=== PATIENT | male | born 1970 | race Caucasian/White ===

== ENCOUNTER 2017-01-22 01:25 | Emergency (ER) | payer BC ==
[2017-01-22] MEDS ORDERED: Sodium Chloride 0.9% 10 ML Syringe FLUSH PRN (01:57)
[2017-01-22] MEDS ORDERED: Dicyclomine 10 MG Cap PO ONE (01:57)
[2017-01-22] MEDS ORDERED: Ondansetron 4 MG/2 ML SDV IVPUSH ONE (01:57)
[2017-01-22] MEDS ORDERED: Sodium Chloride 0.9% 2.5 ML Syringe FLUSH PRN (01:57)
[2017-01-22] MEDS ORDERED: Sodium Chloride 0.9% 1,000 ML IV ONE (01:57)
--- NOTE | 2017-01-22 01:58 | EDM.PDOC ---
ED HPI GENERAL MEDICAL PROBLEM - General Chief Complaint: Abdominal Pain Stated Complaint: ABDOMINAL PAINS Time Seen by Provider: 01/22/17 01:54 - History of Present Illness INITIAL COMMENTS - FREE TEXT/NARRATIVE: HISTORY AND PHYSICAL: History of present illness: Patient 46-year-old male presents with a concern of abdominal pain he's had this 10 years he's had nausea and decreased oral intake and concern about possible dehydration he is self diagnosed as irritable bowel syndrome he's been seen in the past he's had colonoscopy and seen by his private doctor is not given any dietary or when necessary medications for this chronic intermittent abdominal pain. He denies fever chills chest pain shortness breath or other concern Review of systems: As per history of present illness and below otherwise all systems reviewed and negative. Past medical history: As per history of present illness and as reviewed below otherwise noncontributory. Surgical history: As per history of present illness and as reviewed below otherwise noncontributory. Social history: No reported history of drug or alcohol abuse. Family history: As per history of present illness and as reviewed below otherwise noncontributory. Physical exam: HEENT: Atraumatic, normocephalic, pupils reactive, negative for conjunctival pallor or scleral icterus, mucous membranes dry, throat clear, neck supple, nontender, trachea midline. Lungs: Clear to auscultation, breath sounds equal bilaterally, chest nontender. Heart: S1S2, regular, negative for clicks, rubs, or JVD. Abdomen: Soft, nondistended, no localized tenderness. Negative for masses or hepatosplenomegaly. Negative for costovertebral tenderness. Pelvis: Stable nontender. Genitourinary: Deferred. Rectal: Deferred. Extremities: Atraumatic, negative for cords or calf pain. Neurovascular unremarkable. Neuro: Awake, alert, oriented. Cranial nerves II through XII unremarkable. Cerebellum unremarkable. Motor and sensory unremarkable throughout. Exam nonfocal. Diagnostics: CBC CMP amylase lipase UA CT abdomen and pelvis with IV contrast Therapeutics: Normal saline 1 L bolus Zofran 4 mg IV Bentyl 20 mg Impression: #1 chronic intermittent abdominal pain with acute exacerbation #2 dehydration Definitive disposition and diagnosis as appropriate pending reevaluation and review of above. - Related Data Allergies Allergy/AdvReac Type Severity Reaction Status Date / Time No Known Allergies Allergy Verified 01/22/17 03:20 Home Meds: Home Meds . [No Known Home Meds] 01/22/17 [History] Past Medical History - Past Health History Medical/Surgical History: Denies Medical/Surgical History - Infectious Disease History Infectious Disease History: Reports: Chicken Pox, Measles - Past Surgical History Musculoskeletal Surgical History: Reports: Other (See Below) Social & Family History - Family History Family Medical History: Noncontributory - Tobacco Use Smoking Status *Q: Current Every Day Smoker Years of Tobacco use: 20 Packs/Tins Daily: 1.5 Second Hand Smoke Exposure: Yes - Alcohol Use Days Per Week of Alcohol Use: 6 Number of Drinks Per Day: 2 Total Drinks Per Week: 12 - Recreational Drug Use Recreational Drug Use: No Drug Use in Last 12 Months: No Recreational Drug Type: Reports: Cocaine, Marijuana/Hashish Recreational Drug Use Frequency: Not Used In Over 1 Year ED ROS GENERAL - Review of Systems Review Of Systems: ROS reveals no pertinent complaints other than HPI. ED EXAM, GENERAL - Physical Exam Exam: See Below (See dictation) Course - Vital Signs Last Recorded V/S: Last Vital Signs Temp 37.2 C 01/22/17 01:50 Pulse 65 01/22/17 01:50 Resp 18 01/22/17 01:50 BP 125/68 01/22/17 01:50 Pulse Ox 96 01/22/17 01:50 - Orders/Labs/Meds Orders: Active Orders 24 hr Category Date Time Status Abdomen Pelvis w Cont [CT] Stat Exams 01/22/17 01:56 Taken Sodium Chloride 0.9% [Saline Flush] Med 01/22/17 01:57 Active 10 ml FLUSH ASDIRECTED PRN Sodium Chloride 0.9% [Saline Flush] Med 01/22/17 01:57 Active 2.5 ml FLUSH ASDIRECTED PRN Saline Lock Insert [OM.PC] Stat Oth 01/22/17 01:57 Ordered Medication Orders Sodium Chloride (Saline Flush) 10 ml FLUSH ASDIRECTED PRN PRN Reason: Keep Vein Open Sodium Chloride (Saline Flush) 2.5 ml FLUSH ASDIRECTED PRN PRN Reason: Keep Vein Open Labs: Laboratory Tests 01/22/17 01/22/17 01/22/17 Range/Units 02:15 02:15 04:00 WBC 11.41 H (4.0-11.0) K/uL RBC 5.69 (4.50-5.90) M/uL Hgb 17.7 H (13.0-17.0) g/dL Hct 50.6 H (38.0-50.0) % MCV 88.9 (80.0-98.0) fL MCH 31.1 (27.0-32.0) pg MCHC 35.0 (31.0-37.0) g/dL RDW Std Deviation 37.9 (28.0-62.0) fl RDW Coeff of [place] 12 (11.0-15.0) % Plt Count 226 (150-400) K/uL MPV 9.30 (7.40-12.00) fL Neut % (Auto) 70.3 (48.0-80.0) % Lymph % (Auto) 21.8 (16.0-40.0) % [place] % (Auto) 5.4 (0.0-15.0) % Eos % (Auto) 1.8 (0.0-7.0) % Baso % (Auto) 0.7 (0.0-1.5) % Neut # (Auto) 8.0 H (1.4-5.7) K/uL Lymph # (Auto) 2.5 H (0.6-2.4) K/uL [place] # (Auto) 0.6 (0.0-0.8) K/uL Eos # (Auto) 0.2 (0.0-0.7) K/uL Baso # (Auto) 0.1 (0.0-0.1) K/uL Sodium 138 (136-146) mmol/L Potassium 4.2 (3.5-5.1) mmol/L Chloride 108 (98-110) mmol/L Carbon Dioxide 20 L (21-31) mmol/L BUN 15 (6.0-23.0) mg/dL Creatinine 1.0 (0.6-1.5) mg/dL Est Cr Clr Drug Dosing TNP Estimated GFR (MDRD) > 60.0 ml/min Glucose 108 (60-110) mg/dL Calcium 9.4 (8.8-10.8) mg/dL Total Bilirubin 0.9 (0.1-1.5) mg/dL AST 21 (5-40) IU/L ALT 30 (8-54) IU/L Alkaline Phosphatase 57 (40-150) Total Protein 7.0 (6.0-8.0) g/dL Albumin 4.3 (3.5-5.0) g/dL Globulin 2.7 (2.0-3.5) g/dL Albumin/Globulin Ratio 1.6 (1.3-2.8) Lipase 19 (7-80) U/L Urine Color DARK YELLOW Urine Appearance CLEAR Urine pH 5.5 (5.0-8.0) Ur Specific [place] >= 1.030 (1.001-1.035) Urine Protein NEGATIVE (NEGATIVE) mg/dL Urine Glucose (UA) NEGATIVE (NEGATIVE) mg/dL Urine Ketones TRACE H (NEGATIVE) mg/dL Urine Occult Blood NEGATIVE (NEGATIVE) Urine Nitrite POSITIVE H (NEGATIVE) Urine Bilirubin NEGATIVE (NEGATIVE) Urine Urobilinogen 0.2 (<2.0) EU/dL Ur Leukocyte Esterase NEGATIVE (NEGATIVE) Urine RBC 0-2 (0-2/HPF) Urine WBC 0-3 (0-5/HPF) Ur Epithelial Cells RARE (NONE-FEW) Amorphous Sediment LIGHT (NEGATIVE) Urine Bacteria 1+ H (NEGATIVE) Meds: Medications Generic Name Dose Route Start Last Admin Trade Name Freq PRN Reason Stop Dose Admin Sodium Chloride 10 ml 01/22/17 01:57 Saline Flush FLUSH ASDIRECTED PRN Keep Vein Open Sodium Chloride 2.5 ml 01/22/17 01:57 Saline Flush FLUSH ASDIRECTED PRN Keep Vein Open Discontinued Medications Generic Name Dose Route Start Last Admin Trade Name Freq PRN Reason Stop Dose Admin Dicyclomine HCl 20 mg 01/22/17 01:57 01/22/17 02:23 Bentyl PO 01/22/17 01:58 20 mg ONETIME ONE Administration Sodium Chloride 1,000 mls @ 999 mls/hr 01/22/17 01:57 01/22/17 02:21 Normal Saline IV 01/22/17 02:57 999 mls/hr STAT ONE Administration Iopamidol 85 ml 01/22/17 03:23 01/22/17 03:35 Isovue Multipack-370 (76%) IVPUSH 01/22/17 03:24 85 ml ONETIME STA Administration Ketorolac Tromethamine 30 mg 01/22/17 03:40 01/22/17 03:48 Toradol IVPUSH 01/22/17 03:41 30 mg ONETIME ONE Administration Ondansetron HCl 4 mg 01/22/17 01:57 01/22/17 02:21 Zofran IVPUSH 01/22/17 01:58 4 mg ONETIME ONE Administration Departure - Departure Time of Disposition: 04:37 Disposition: Home, Self-Care 01 Condition: Good Clinical Impression: Abdominal pain - Discharge Information Referrals: Ty Herzog MD [Primary Care Provider] - Forms: ED Department Discharge Additional Instructions: The following information is given to patients seen in the emergency department who are being discharged to home. This information is to outline your options for follow-up care. We provide all patients seen in our emergency department with a follow-up referral. The need for follow-up, as well as the timing and circumstances, are variable depending upon the specifics of your emergency department visit. If you don't have a primary care physician on staff, we will provide you with a referral. We always advise you to contact your personal physician following an emergency department visit to inform them of the circumstance of the visit and for follow-up with them and/or the need for any referrals to a consulting specialist. The emergency department will also refer you to a specialist when appropriate. This referral assures that you have the opportunity for followup care with a specialist. All of these measure are taken in an effort to provide you with optimal care, which includes your followup. Under all circumstances we always encourage you to contact your private physician who remains a resource for coordinating your care. When calling for followup care, please make the office aware that this follow-up is from your recent emergency room visit. If for any reason you are refused follow-up, please contact the [facility] emergency department at and asked to speak to the emergency department charge nurse. Follow-up primary medical doctor 1-2 days return as needed as discussed - My Orders Last 24 Hours: My Active Orders 01/22/17 01:56 Abdomen Pelvis w Cont [CT] Stat 01/22/17 01:57 Sodium Chloride 0.9% [Saline Flush] 10 ml FLUSH ASDIRECTED PRN Sodium Chloride 0.9% [Saline Flush] 2.5 ml FLUSH ASDIRECTED PRN Saline Lock Insert [OM.PC] Stat - Assessment/Plan Last 24 Hours: My Active Orders 01/22/17 01:56 Abdomen Pelvis w Cont [CT] Stat 01/22/17 01:57 Sodium Chloride 0.9% [Saline Flush] 10 ml FLUSH ASDIRECTED PRN Sodium Chloride 0.9% [Saline Flush] 2.5 ml FLUSH ASDIRECTED PRN Saline Lock Insert [OM.PC] Stat
[2017-01-22 02:45] LABS: CHLORIDE,CL 108 mmol/L (98-110); SODIUM,NA 138 mmol/L (136-146)
[2017-01-22] MEDS ORDERED: Iopamidol 755 MG/ML 500 ML Multipack Bottle IVPUSH STA (03:23)
[2017-01-22] MEDS ORDERED: Ketorolac 30 MG/ML SDV IVPUSH ONE (03:40)
[2017-01-22 05:07] VITALS: BP 110/67
--- NOTE | 2017-01-22 15:31 | CT ---
EXAM DATE: 01/22/17 PATIENT'S AGE: 46 Patient: JARRET ROMERO Facility: [place], [place] Site . Site : 1970 Study: CT Abdomen/Pelvis W CONT [id number]/28/2017 3:39:04 AM Ordering Physician: Marvin Monet Final Report: INDICATION: Abdominal pain. Nausea and vomiting. TECHNIQUE: CT abdomen and pelvis acquired with 85 mL of Isovue 370 IV contrast. COMPARISON: None. FINDINGS: Lower chest: Unremarkable. Liver: Too small to characterize low-density lesions likely represent cysts. Spleen: Unremarkable. Pancreas: Unremarkable. Gallbladder and bile ducts: Unremarkable. Kidneys: Unremarkable. Adrenal glands: Unremarkable. GI tract: Nonvisualization of the appendix. No bowel obstruction or inflammatory changes involving the GI tract. No free air or free fluid. Vascular structures: Unremarkable. Lymph nodes: Unremarkable. Pelvic Organs: Unremarkable. Bones: No acute abnormality. IMPRESSION: No acute intra-abdominal or pelvic abnormality. Dictated by Jurgen Good MD @ 01/22/2017 4:05:45 AM Dictated by: Jurgen Good MD @ 01/22/2017 04:06:07 (Electronic Signature) Report Signed by Proxy. [facility]PITALCameron
== END 2017-01-22 04:45 | disposition home or self-care (01) ==
LOC: MW.ED 01:25
DX: E86.0 Dehydration (principal); R10.9 Unspecified abdominal pain; F17.210 Nicotine dependence, cigarettes, uncomplicated
CPT/HCPCS: 74177; 80053; 81001; 83690; 85025; 96361; 96374; 99284; A9270; J1885; J2405; J7040; Q9967; 99283

== ENCOUNTER 2018-08-30 08:06 | Day surgery (SDC) | payer BC ==
[~2018-08-30 08:06] MED LIST: Lactated Ringers 1,000 ML IV SCH
--- NOTE | 2018-08-30 08:41 | PCM.PREANE ---
Preanesthetic Assessment - Anesthesia/Transfusion/Family Hx Anesthesia History: Prior Anesthesia Without Reaction Transfusion History: No Prior Transfusion(s) - Review of Systems General: No Symptoms Pulmonary: No Symptoms Cardiovascular: No Symptoms Neurological: No Symptoms Other: Reports: None - Physical Assessment NPO Status Date: 08/29/18 O2 Sat by Pulse Oximetry: 68 Respiratory Rate: 20 Vital Signs: Last Vital Signs Temp 97.7 F 08/30/18 08:25 Pulse 68 08/30/18 08:25 Resp 20 08/30/18 08:25 BP 110/71 08/30/18 08:25 Pulse Ox 68 L 08/30/18 08:25 Height: 5 ft 7 in Weight: 78.471 kg ASA Class: 2 Mental Status: Alert & Oriented x3 Airway Class: Mallampati = 1 Dentition: Reports: Normal Dentition ROM/Head Extension: Full Lungs: Clear to Auscultation, Normal Respiratory Effort Cardiovascular: Regular Rate, Regular Rhythm - Allergies Allergies/Adverse Reactions: Allergies Allergy/AdvReac Type Severity Reaction Status Date / Time No Known Allergies Allergy Verified 08/28/18 10:46 - Blood Blood Available: No - Anesthesia Plan Pre-Op Medication Ordered: None - Acknowledgements Anesthesia Type Planned: General Anesthesia, MAC Pt an Appropriate Candidate for the Planned Anesthesia: Yes Alternatives and Risks of Anesthesia Discussed w Pt/Guardian: Yes Pt/Guardian Understands and Agrees with Anesthesia Plan: Yes Additional Comments: PMH: smoker PLAN: mac/tiva PreAnesthesia Questionnaire - Past Health History Medical/Surgical History: Denies Medical/Surgical History HEENT History: Reports: None Cardiovascular History: Reports: Other (See Below) Other Cardiovascular History: tends to run low blood pressure Respiratory History: Reports: None Other Respiratory History: has smoked 1.5 PPD for 30 years Gastrointestinal History: Reports: Colon Polyp, Diverticulosis, Other (See Below ) Other Gastrointestinal History: occasional heartburn- takes TUMS Genitourinary History: Reports: None Musculoskeletal History: Reports: Back Pain, Chronic, Fracture Other Musculoskeletal History: hx of fx ankle (casted) Neurological History: Reports: Concussion Psychiatric History: Reports: None Endocrine/Metabolic History: Reports: None Hematologic History: Reports: None Dermatologic History: Reports: None - Infectious Disease History Infectious Disease History: Reports: Chicken Pox, Measles - Past Surgical History GI Surgical History: Reports: Appendectomy, Colonoscopy, EGD Musculoskeletal Surgical History: Reports: Other (See Below) Other Musculoskeletal Surgeries/Procedures:: repair of ruptured biceps tendon and repair of soft tissue to foot - SUBSTANCE USE Smoking Status *Q: Current Every Day Smoker Tobacco Use Within Last Twelve Months: Cigarettes Days Per Week of Alcohol Use: 7 Number of Drinks Per Day: 3 Total Drinks Per Week: 21 Recreational Drug Use History: No - HOME MEDS Home Medications: Home Meds Acetaminophen/Diphenhydramine [Tylenol Pm Ex-Strength Caplet] 1 tab PO BEDTIME PRN 08/28/18 [History] Magnesium Citrate 1 tab PO DAILY 08/28/18 [History] - CURRENT (IN HOUSE) MEDS Current Meds: Current Medications Lactated Ringer's (Ringers, Lactated) 1,000 mls @ 125 mls/hr IV ASDIRECTED [facility] Last Admin: 08/30/18 08:28 Dose: 125 mls/hr
[2018-08-30] MEDS ORDERED: Midazolam 1 MG/ML 2 ML SDV ONE (09:13)
[2018-08-30] MEDS ORDERED: Lidocaine 2% 100 MG/5 ML Syringe ONE (09:14)
[2018-08-30] MEDS ORDERED: fentaNYL 100 MCG/2 ML SDV ONE (09:14)
[2018-08-30] MEDS ORDERED: Propofol 200 MG/20 ML SDV ONE ×2 (09:15→09:49)
[2018-08-30] MEDS ORDERED: Phenylephrine/Normal Saline 100 MCG/ML 10 ML Syringe ONE (09:41)
--- NOTE | 2018-08-30 10:12 | PCM.OPNOTE ---
- General Post-Op/Procedure Note Date of Surgery/Procedure: 08/30/18 Operative Procedure(s): egd w bx and colonoscopy w bx Findings: see dict [id number] Pre Op Diagnosis: abd pain and hx of colon polyp Post-Op Diagnosis: Same Anesthesia Technique: Moderate Sedation Primary Surgeon: Pedro Bobo Pathology: egd bx, inflammation at the stomach colon polyp, sessile, 2 mm at 60cm, 50cm and 50cm Complications: None Condition: Good
[2018-08-30 10:58] VITALS: BP 101/64
--- NOTE | 2018-08-30 11:07 | PCM.POSTAN ---
POST ANESTHESIA ASSESSMENT - MENTAL STATUS Mental Status: Alert, Oriented - RESPIRATORY Respiratory Status: Respiratory Rate WNL, Airway Patent, O2 Saturation Stable - CARDIOVASCULAR CV Status: Pulse Rate WNL, Blood Pressure Stable - GASTROINTESTINAL GI Status: No Symptoms - POST OP HYDRATION Hydration Status: Adequate & Stable
--- NOTE | 2018-08-30 11:08 | PCM48HPAN ---
Post Anesthesia Note - EVALUATION WITHIN 48HRS OF ANESTHETIC Vital Signs in Normal Range: Yes Patient Participated in Evaluation: Yes Respiratory Function Stable: Yes Airway Patent: Yes Cardiovascular Function Stable: Yes Hydration Status Stable: Yes Pain Control Satisfactory: Yes Nausea and Vomiting Control Satisfactory: Yes Mental Status Recovered: Yes Resp Rate: 16
--- NOTE | 2018-08-30 17:12 | OR ---
SURGEON: Pedro Bobo MD DATE OF PROCEDURE: 08/30/2018 PREOPERATIVE DIAGNOSIS: Abdominal pain and history of polyp. POSTOPERATIVE DIAGNOSES: 1. Duodenitis. 2. Gastritis. 3. Esophagitis. 4. Colon polyp and colon diverticulosis. PROCEDURE PERFORMED: 1. EGD with biopsy. 2. Colonoscopy with biopsy. PROCEDURE DETAILS: PROCEDURE #1: EGD: The patient was taken to the endoscopy room, and with the INSTRUMENT STERILIZER, Diprivan was administered. A well-lubricated EGD scope was gently inserted through the oropharynx, down the esophagus, passing through the gastroesophageal junction, into the stomach. The mucosa was examined upon the passage. Any etiology will be noted. Once in the stomach, we continued to advance to the distal antrum, passed through the pylorus into the second portion of the duodenum. Again, the mucosa was examined for any abnormality and etiology. The scope was then retrieved back to the stomach and then retroflexed to look at the fundus of the stomach. If a biopsy was indicated, we will biopsy the antrum, body, and gastroesophageal junction. The air will be sucked out while the scope is retrieved to reduce the patient's discomfort. The patient tolerated the procedure well. There were no intraoperative complications. Dr. Bobo was present through the whole procedure. Prior to surgery, a time-out had been called, the patient identified, procedure identified and antibiotic administered. PROCEDURE #2: Colonoscopy. The patient was taken to the endoscopy room. A time out was called, patient identified, and procedure identified. Diprivan was then administrated. Patient went from awake to sleep, hearing doctor talking or door closing is normal. Perineum inspection and digital examination were then performed. A well- lubricated colonoscope was gently inserted through the rectum, advanced past the rectosigmoid junction, the descending colon, splenic flexure, transverse colon, hepatic flexure, ascending colon, arrived to the cecum. Cecum was identified as dictated in the finding. Then the scope was carefully withdrawn while attention was paid to the mucosal surface for any abnormality. Air will be sucked out during the scope withdrawal. At the rectum, retroflexed to examine any rectal diseases, fistula or hemorrhoids. During mucosal examination, biopsy performed. Patient tolerated procedure well. There were no intraoperative complications, and Dr. Bobo was present throughout the whole procedure. FINDINGS: EGD findin. The patient is easily sedated with INSTRUMENT STERILIZER and Diprivan. The patient is soundly snoring. 2. Proximal esophagus and oropharynx are free of disease. No inflammation, stricture, ulceration, or varicosity. Distal esophagus and GE junction at 40 shows significant flame-like structure of salmon-colored change consistent with significant acid reflux. Stomach rugae is normal in appearance and antrum is quite inflamed with some area looked like a healed ulcer or blood. There is no kevin ulcer or kevin blood or food particle or bile observed. Duodenum polyp is completely inflamed and no ulcer again. After the duodenum bulb, duodenum is grossly normal in appearance. Retrieved back to the fundus, looking at the fundus of the stomach, there is no hiatal hernia. Biopsy done at antrum. One of the areas looked like a healed ulcer, biopsied that area and biopsied the body and biopsy the GE junction and sucked out of the gas while scope pulling out. Colonoscopy findin. Patient is easily sedated with INSTRUMENT STERILIZER and Diprivan. Patient is soundly snoring. 2. Bowel prep is average with large amount of stool ball, semi-formed stool, and compromised study. Stool balls probably from the diverticulosis. On rectal digital exam, the patient has had some nodule in the prostate and the patient would benefit seeing Urology consult after this at the followup visit. Colon is rather straightforward and cecum indicated by ileocecal fold, and one-to-one indentation, appendiceal orifice. Light emittance is not observed. Cecum is quite inflamed. When coupled with duodenitis and cecal inflammation, there is some concern about inflammatory disease like UC or Crohn's disease, depends on the pathology. Mucosa examined upon scope pulling out and the patient has very significant diverticulosis from left colon to transverse colon to right colon, mostly clustered into the left colon. No signs or symptoms of diverticulitis, and the patient had 3 small polyps of less than 2 mm, sessile polyps, removed with cold biopsy forceps at distance 60 and distance 50; one at 60, 2 at 50, all 2 mm sessile polyp. We also did a biopsy at the cecum because of the inflammation, and the patient has some mild internal hemorrhoids and mild external hemorrhoids. Other than the polyp, diverticulosis, and inflammation in the cecum, there is no other disease, ulceration, bleeding, AV malformation, mass, nodule, none of those. PLAN: The patient would benefit from: 1. PPI in regard to the stomach pain, esophagitis, duodenitis, and gastritis. 2. The patient would benefit from a urology visit because of the nodule palpated in the prostate. 3. Depending on the pathology report, the patient may need a GI consult. Refer to GI for possible inflammatory disease, and the patient probably will need to repeat EGD in 6 months from today. 4. Regarding a colonoscopy, the patient would benefit from repeat colonoscopy in 3 years from today because of previous history of colon polyps. WAQAR LYNN /[id number] JESSIE
== END 2018-08-30 11:11 | disposition home or self-care (01) ==
LOC: MW.SDS 08:06
PROVIDERS: ATTEND Surgery
DX: Z12.11 Encounter for screening for malignant neoplasm of colon (principal); K63.5 Polyp of colon; D12.4 Benign neoplasm of descending colon; K29.50 Unspecified chronic gastritis without bleeding; K29.80 Duodenitis without bleeding; K57.30 Diverticulosis of large intestine without perforation or abscess without bleeding; K20.9 Esophagitis, unspecified; K64.8 Other hemorrhoids; K64.4 Residual hemorrhoidal skin tags; Z86.010 Personal history of colon polyps
CPT/HCPCS: 43239; 45380; 88305; 88312; J2001; J2250; J2370; J2704; J3010; J7120

== ENCOUNTER 2021-04-26 01:37 | Emergency (ER) | payer BC ==
[2021-04-26] MEDS ORDERED: Ondansetron 4 MG/2 ML SDV IVPUSH ONE (01:53)
[2021-04-26] MEDS ORDERED: Sodium Chloride 0.9% 10 ML Syringe FLUSH PRN (01:53)
[2021-04-26] MEDS ORDERED: Sodium Chloride 0.9% 1,000 ML IV ONE (01:53)
[2021-04-26] MEDS ORDERED: Sodium Chloride 0.9% 2.5 ML Syringe FLUSH PRN (01:53)
--- NOTE | 2021-04-26 01:57 | EDM.PDOC ---
ED HPI GENERAL MEDICAL PROBLEM - General Stated Complaint: CHILLS SWEATS DEHYDRATED PUKING Time Seen by Provider: 04/26/21 01:52 - History of Present Illness INITIAL COMMENTS - FREE TEXT/NARRATIVE: History of present illness: [] Patient is vomiting and dry heaving. He has abdominal pain. He has been having this for at least a day. He has had a couple of drinks a day. He is to take acid medicine for his stomach but has not taken it for a long time. Patient's abdominal pain is moderately severe and caused him to double over. Nothing makes it better or worse. Review of systems: As per history of present illness and below otherwise all systems reviewed and negative. Past medical history: As per history of present illness and as reviewed below otherwise noncontributory. Surgical history: As per history of present illness and as reviewed below otherwise noncontributory. Social history: No reported history of drug or alcohol abuse. Family history: As per history of present illness and as reviewed below otherwise noncontributory. Physical exam: Constitutional - well developed, well-nourished and in no acute distress HEENT - normocephalic, no evidence of trauma - external nose and mouth normal - no mass in neck and no JVD - mucosae moist EYES - full EOM, PERRL, no icterus - no evidence of inflammation, injection, or drainage Respiratory - no respiratory distress, equal bilateral expansion, lungs clear to auscultation and no abnormal lung sounds Cardiovascular - Regular Rhythm with S1 and S2 appreciated and no murmur, gallop or rub. GI -tender-abdomen soft without distension or organomegaly - normal bowel sounds - no guard or rebound Musculoskeletal no gross deformity of long bones or joints - no tenderness, swelling or edema Neurologic - Alert and oriented times four - CN II-XII grossly intact - motor sensory and coordination symmetrically normal Psychiatric - appropriate mood and affect with normal thought content Hematologic - No petechiae or purpura - mucosa appropriate color and sclera not pale - normal nail bed color and refill Integument - no rash or evidence of trauma - normal turgor Diagnostics: [] Therapeutics: [] Impression: [] Plan: [] Definitive disposition and diagnosis as appropriate pending reevaluation and review of above. abd Pain Score (Numeric/FACES): 8 - Related Data Allergies Allergy/AdvReac Type Severity Reaction Status Date / Time No Known Allergies Allergy Verified 04/26/21 01:47 Home Meds: Home Meds Acetaminophen/Diphenhydramine [Tylenol Pm Ex-Strength Caplet] 1 tab PO BEDTIME PRN 08/28/18 [History] Magnesium Citrate 1 tab PO DAILY 08/28/18 [History] Ondansetron [Zofran ODT] 4 mg PO Q6H PRN #6 tab.dis 04/26/21 [Rx] Pantoprazole Sodium [Protonix] 40 mg PO DAILY #30 tablet. 04/26/21 [Rx] Past Medical History - Past Health History Medical/Surgical History: Denies Medical/Surgical History HEENT History: Reports: None Cardiovascular History: Reports: Other (See Below) Other Cardiovascular History: tends to run low blood pressure Respiratory History: Reports: None Other Respiratory History: has smoked 1.5 PPD for 30 years Gastrointestinal History: Reports: Colon Polyp, Diverticulosis, Other (See Below) Other Gastrointestinal History: occasional heartburn- takes TUMS Genitourinary History: Reports: None Musculoskeletal History: Reports: Back Pain, Chronic, Fracture Other Musculoskeletal History: hx of fx ankle (casted) Neurological History: Reports: Concussion Psychiatric History: Reports: None Endocrine/Metabolic History: Reports: None Hematologic History: Reports: None Dermatologic History: Reports: None - Infectious Disease History Infectious Disease History: Reports: Chicken Pox, Measles - Past Surgical History GI Surgical History: Reports: Appendectomy, Colonoscopy, EGD Musculoskeletal Surgical History: Reports: Other (See Below) Other Musculoskeletal Surgeries/Procedures:: repair of ruptured biceps tendon and repair of soft tissue to foot Social & Family History - Family History Family Medical History: No Pertinent Family History ED ROS GENERAL - Review of Systems Review Of Systems: Comprehensive ROS is negative, except as noted in HPI. ED EXAM, GENERAL - Physical Exam Exam: See Below Free Text/Narrative:: My physical exam is in the HPI Course - Vital Signs Last Recorded V/S: Last Vital Signs Temp 35.9 C L 04/26/21 01:48 Pulse 83 04/26/21 02:59 Resp 18 04/26/21 02:59 BP 124/76 04/26/21 02:59 Pulse Ox 97 04/26/21 02:59 - Orders/Labs/Meds Orders: Active Orders 24 hr Category Date Time Status Sodium Chloride 0.9% [Saline Flush] Med 04/26/21 01:53 Active 10 ml FLUSH ASDIRECTED PRN Sodium Chloride 0.9% [Saline Flush] Med 04/26/21 01:53 Active 2.5 ml FLUSH ASDIRECTED PRN Saline Lock Insert [OM.PC] Stat Oth 04/26/21 01:53 Ordered Medication Orders Sodium Chloride (Sodium Chloride 0.9% 10 Ml Syringe) 10 ml FLUSH ASDIRECTED PRN PRN Reason: Keep Vein Open Last Admin: 04/26/21 01:59 Dose: 10 ml Documented by: SANGEETA Sodium Chloride (Sodium Chloride 0.9% 2.5 Ml Syringe) 2.5 ml FLUSH ASDIRECTED PRN PRN Reason: Keep Vein Open Last Admin: 04/26/21 02:00 Dose: 2.5 ml Documented by: SANGEETA Labs: Laboratory Tests 04/26/21 04/26/21 04/26/21 Range/Units 02:05 02:05 02:54 WBC 16.55 H (4.0-11.0) K/uL RBC 5.30 (4.50-5.90) M/uL Hgb 17.6 H (13.0-17.0) g/dL Hct 47.7 (38.0-50.0) % MCV 90.0 (80.0-98.0) fL MCH 33.2 H (27.0-32.0) pg MCHC 36.9 (31.0-37.0) g/dL RDW Std Deviation 41.0 (28.0-62.0) fl RDW Coeff of [place] 13 (11.0-15.0) % Plt Count 250 (150-400) K/uL MPV 10.00 (7.40-12.00) fL Neut % (Auto) 81.7 H (48.0-80.0) % Lymph % (Auto) 12.7 L (16.0-40.0) % Turner % (Auto) 4.9 (0.0-15.0) % Eos % (Auto) 0.4 (0.0-7.0) % Baso % (Auto) 0.3 (0.0-1.5) % Neut # (Auto) 13.5 H (1.4-5.7) K/uL Lymph # (Auto) 2.1 (0.6-2.4) K/uL Turner # (Auto) 0.8 (0.0-0.8) K/uL Eos # (Auto) 0.1 (0.0-0.7) K/uL Baso # (Auto) 0.1 (0.0-0.1) K/uL Nucleated RBC % 0.0 /100WBC Nucleated RBCs # 0 K/uL Sodium 141 (136-148) mmol/L Potassium 4.0 (3.5-5.1) mmol/L Chloride 103 (98-107) mmol/L Carbon Dioxide 20.1 L (21.0-32.0) mmol/L BUN 9 (7.0-18.0) mg/dL Creatinine 1.0 (0.8-1.3) mg/dL Est Cr Clr Drug Dosing TNP Estimated GFR (MDRD) > 60.0 ml/min Glucose 154 H (74-106) mg/dL Calcium 9.1 (8.5-10.1) mg/dL Magnesium 1.9 (1.8-2.4) mg/dL Total Bilirubin 0.8 (0.2-1.0) mg/dL AST 30 (15-37) IU/L ALT 31 (14-63) IU/L Alkaline Phosphatase 65 (46-116) U/L Total Protein 8.2 (6.4-8.2) g/dL Albumin 4.3 (3.4-5.0) g/dL Globulin 3.9 (2.6-4.0) g/dL Albumin/Globulin Ratio 1.1 (0.9-1.6) Lipase 105 (73-393) U/L Urine Color YELLOW Urine Appearance CLEAR Urine pH 6.0 (5.0-8.0) Ur Specific [place] 1.020 (1.001-1.035) Urine Protein NEGATIVE (NEGATIVE) mg/dL Urine Glucose (UA) NEGATIVE (NEGATIVE) mg/dL Urine Ketones 15 H (NEGATIVE) mg/dL Urine Occult Blood NEGATIVE (NEGATIVE) Urine Nitrite NEGATIVE (NEGATIVE) Urine Bilirubin NEGATIVE (NEGATIVE) Urine Urobilinogen 0.2 (<2.0) EU/dL Ur Leukocyte Esterase NEGATIVE (NEGATIVE) Meds: Medications Generic Name Dose Route Start Last Admin Trade Name Freq PRN Reason Stop Dose Admin Sodium Chloride 10 ml 04/26/21 01:53 04/26/21 01:59 Sodium Chloride 0.9% 10 Ml Syringe FLUSH 10 ml ASDIRECTED PRN Administration Keep Vein Open Sodium Chloride 2.5 ml 04/26/21 01:53 04/26/21 02:00 Sodium Chloride 0.9% 2.5 Ml Syringe FLUSH 2.5 ml ASDIRECTED PRN Administration Keep Vein Open Discontinued Medications Generic Name Dose Route Start Last Admin Trade Name Vikki PRN Reason Stop Dose Admin Alum Conrad/Mag Conrad/Simeth XS 0 ml 04/26/21 02:27 04/26/21 02:34 15 ml/ Metoclopramide HCl 5 PO 04/26/21 02:28 1 each mg/ Lidocaine HCl 5 ml ONETIME ONE Administration Hydromorphone HCl 1 mg 04/26/21 03:09 04/26/21 03:15 Hydromorphone 2 Mg/Ml Syringe IVPUSH 04/26/21 03:10 1 mg ONETIME ONE Administration Sodium Chloride 1,000 mls @ 999 mls/hr 04/26/21 01:53 04/26/21 02:00 Normal Saline IV 04/26/21 02:53 999 mls/hr .Bolus ONE Administration Lorazepam 1 mg 04/26/21 02:46 04/26/21 02:51 Lorazepam 2 Mg/Ml Sdv IVPUSH 04/26/21 02:47 1 mg ONETIME ONE Administration Ondansetron HCl 4 mg 04/26/21 01:53 04/26/21 02:00 Ondansetron 4 Mg/2 Ml Sdv IVPUSH 04/26/21 01:54 4 mg ONETIME ONE Administration Pantoprazole Sodium 40 mg 04/26/21 02:16 04/26/21 02:21 Pantoprazole 40 Mg/10 Ml Syringe IVPUSH 04/26/21 02:17 40 mg NOW ONE Administration - Re-Assessments/Exams Free Text/Narrative Re-Assessment/Exam: 04/26/21 03:09 Patient laid supine. He felt little better but he is tender in the right upper quadrant and epigastrium. Plan try to get his pain under control and if I can we will do an ultrasound later when the tech is in the hospital and follow-up with PMD. Departure - Departure Time of Disposition: 03:28 Disposition: Home, Self-Care 01 Condition: Good Clinical Impression: Gastritis - Discharge Information Prescriptions: Pantoprazole Sodium [Protonix] 40 mg PO DAILY #30 tablet. Ondansetron [Zofran ODT] 4 mg PO Q6H PRN #6 tab.dis PRN Reason: Nausea/Vomiting Referrals: Ty Herzog MD [Primary Care Provider] - Additional Instructions: Your [facility] were [facility]. Have ultrasound and see PMD for follow-up [facility] [address] [place] [id number] [facility] [address] [place] [id number] The following information is given to patients seen in the emergency department who are being discharged to home. This information is to outline your options for follow-up care. We provide all patients seen in our emergency department with a follow-up referral. The need for follow-up, as well as the timing and circumstances, are variable depending upon the specifics of your emergency department visit. If you don't have a primary care physician on staff, we will provide you with a referral. We always advise you to contact your personal physician following an emergency department visit to inform them of the circumstance of the visit and for follow-up with them and/or the need for any referrals to a consulting specialist. The emergency department will also refer you to a specialist when appropriate. This referral assures that you have the opportunity for follow-up care with a specialist. All of these measure are taken in an effort to provide you with optimal care, which includes your follow-up. Under all circumstances we always encourage you to contact your private physician who remains a resource for coordinating your care. When calling for follow-up care, please make the office aware that this follow-up is from your recent emergency room visit. If for any reason you are refused follow-up, please contact the [facility] Emergency Department at and asked to speak to the emergency department charge nurse. Sepsis Event Note (ED) - Evaluation Sepsis Screening Result: No Definite Risk - Focused Exam Vital Signs: Vital Signs Temp Pulse Resp BP Pulse Ox 04/26/21 02:59 83 18 124/76 97 04/26/21 01:48 35.9 C L 85 20 119/82 100 - My Orders Last 24 Hours: My Active Orders 04/26/21 01:53 Sodium Chloride 0.9% [Saline Flush] 10 ml FLUSH ASDIRECTED PRN Sodium Chloride 0.9% [Saline Flush] 2.5 ml FLUSH ASDIRECTED PRN Saline Lock Insert [OM.PC] Stat - Assessment/Plan Last 24 Hours: My Active Orders 04/26/21 01:53 Sodium Chloride 0.9% [Saline Flush] 10 ml FLUSH ASDIRECTED PRN Sodium Chloride 0.9% [Saline Flush] 2.5 ml FLUSH ASDIRECTED PRN Saline Lock Insert [OM.PC] Stat
[2021-04-26] MEDS ORDERED: Pantoprazole 40 MG/10 ML Syringe IVPUSH ONE (02:16)
[2021-04-26 02:24] LABS: BLOOD UREA NITROGEN,BUN 9 mg/dL (7.0-18.0); CARBON DIOXIDE,CO2 20.1 mmol/L (21.0-32.0); CHLORIDE,CL 103 mmol/L (98-107); GLUCOSE RANDOM 154 mg/dL (74-106); LIPASE 105 U/L (73-393); SODIUM,NA 141 mmol/L (136-148)
[2021-04-26] MEDS ORDERED: Alum Hydro/Mag Hydro/Simeth XS 15 ML, Metoclopramide 5 MG, Lidocaine 2% 5 ML PO ONE ×3 (02:27)
[2021-04-26] MEDS ORDERED: LORazepam 2 MG/ML SDV IVPUSH ONE (02:46)
[2021-04-26] MEDS ORDERED: HYDROmorphone 2 MG/ML Syringe IVPUSH ONE (03:09)
[2021-04-26 03:33] VITALS: BP 134/68; PULSE 81
== END 2021-04-26 03:34 | disposition home or self-care (01) ==
LOC: MW.ED 01:37
DX: K29.70 Gastritis, unspecified, without bleeding (principal); F17.210 Nicotine dependence, cigarettes, uncomplicated
CPT/HCPCS: 36415; 80053; 81003; 83690; 83735; 85025; 96374; 96375; 99284; A9270; C9113; J1170; J2060; J2405; J7030